=== PATIENT | female | born 1955 | race Caucasian/White ===

== ENCOUNTER 2023-03-26 20:44 | Outpatient (OUT) | payer OTHER, SELFPAY | END 2023-03-26 20:45 | disposition home or self-care (01) | LOC: SLEEP 20:44 | PROVIDERS: PCP Psychiatry & Neurology Neurology; Visit Provider Psychiatry & Neurology Neurology | DX: G47.33 Obstructive sleep apnea (adult) (pediatric) (principal) | CPT/HCPCS: 95811 ==